=== PATIENT | male | born 1975 | race Caucasian/White ===

== ENCOUNTER 2024-10-15 18:44 | Inpatient (IN) | payer OTHER ==
--- NOTE | 2024-10-15 21:45 | US ---
EXAMINATION TYPE: US venous doppler duplex LE RT DATE OF EXAM: 10/15/2024 9:28 PM COMPARISON: None CLINICAL INDICATION: Male, 49 years old with history of pain, , rt leg pain and swelling TECHNIQUE: lower extremity deep venous system is examined utilizing real time linear array sonography with graded compression, color doppler and spectral doppler FINDINGS: side performed: right Right leg: There are echoes with thready flow and partial compression within the mid and distal femor al vein. There are echoes with no color doppler and no compression seen within the popliteal veins, g astroc veins, peroneal veins and PTV at the level of the calf. However, the PTVs appear to have color doppler flow and compress at the ankle IMPRESSION: Positive right lower extremity deep vein thrombosis. Findings communicated to Cathi Rangel, PAC on 10/15/2024 9:[address] Chuck Rouse. [facility], , 10/15/2024 9:43 PM
--- NOTE | 2024-10-15 21:53 | ED ---
General Adult HPI - General Chief complaint: Extremity Problem,Nontraumatic Stated complaint: R leg pain Time Seen by Provider: 10/15/24 19:00 Source: patient, EMS, RN notes reviewed Mode of arrival: EMS Limitations: no limitations - History of Present Illness Initial comments: 49-year-old male presenting to the ER as a transfer from [facility] with concerns for right lower extremity pain and swelling. He states that over the past 3 days he has noticed that there is swelling to the right lower part of his leg and this morning when he woke up he started to experience right-sided chest pain. He states that the pain is worse on the side of his chest with inspiration, pressure, and movement. 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 Currently states that he is having pain to his leg and to his chest. He denies recent travel or surgeries, hemoptysis, history of DVT or PE. Denies blood thinner use. - Related Data Allergies Allergy/AdvReac Type Severity Reaction Status Date / Time amoxicillin Allergy Rash/Hives Verified 10/15/24 19:16 Penicillins Allergy Rash/Hives Verified 10/15/24 19:16 seafood Allergy Anaphylaxis Uncoded 10/15/24 19:16 Review of Systems ROS Statement: Those systems with pertinent positive or pertinent negative responses have been documented in the HPI. ROS Other: All systems not noted in ROS Statement are negative. Past Medical History Past Medical History: Hypertension History of Any Multi-Drug Resistant Organisms: None Reported Past Surgical History: No Surgical Hx Reported Past Psychological History: No Psychological Hx Reported Smoking Status: Never smoker Past Alcohol Use History: Occasional Past Drug Use History: None Reported General Exam Limitations: no limitations Neck exam: Present: normal inspection. Absent: tenderness, meningismus, lymphadenopathy Respiratory exam: Present: normal lung sounds bilaterally, chest wall tenderness (anterior right to palpation). Absent: respiratory distress, wheezes, rales, rhonchi, stridor Cardiovascular Exam: Present: regular rate, normal rhythm, normal heart sounds. Absent: systolic murmur, diastolic murmur, rubs, gallop, clicks GI/Abdominal exam: Present: soft, normal bowel sounds. Absent: distended, tenderness, guarding, rebound, rigid Right Lower Leg exam: Present: tenderness, swelling, Homans' sign. Absent: deformity, crepitus, erythema, palpable cord Neurovascular tendon exam: Present: no vascular compromise. Absent: pulse deficit Back exam: Present: normal inspection Course Vital Signs 10/15/24 19:14 Temperature 97.8 F Pulse Rate 106 H Respiratory 18 Rate Blood Pressure 153/115 O2 Sat by Pulse 99 Oximetry Medical Decision Making - Medical Decision Making Was pt. sent in by a medical professional or institution (, SYBIL, DETECTIVE, urgent care, hospital, or retirement...) When possible be specific @ -Patient was a transfer from [facility] with concern for right lower extremity swelling and pain and chest pain to rule out DVT or potential PE. Did you speak to anyone other than the patient for history (EMS, parent, family, police, friend...)? What history was obtained from this source @ -No Did you review nursing and triage notes (agree or disagree)? Why? @ -I reviewed and agree with nursing and triage notes Were old charts reviewed (outside hosp., previous admission, EMS record, old EKG, old radiological studies, urgent care reports/EKG's, retirement records)? Report findings @ -No old charts were reviewed Differential Diagnosis (chest pain, altered mental status, abdominal pain women, abdominal pain men, vaginal bleeding, weakness, fever, dyspnea, syncope, headache, dizziness, GI bleed, back pain, seizure, CVA, palpatations, mental health, musculoskeletal)? @ -Differential Chest Pain: Stable Angina, Unstable Angina, STEMI, NSTEMI Aortic Dissection, Pneumothorax, Musculoskeletal, Esophageal Spasm GERD, Cholecystitis, Pancreatitis, Zoster, this is not meant to be an all-inclusive list. EKG interpreted by me (3pts min.). @ -none X-rays interpreted by me (1pt min.). @ -None done CT interpreted by me (1pt min.). @ -None done U/S interpreted by me (1pt. min.). @ -None done What testing was considered but not performed or refused? (CT, X-rays, U/S, labs)? Why? @ -None What meds were considered but not given or refused? Why? @ -None Did you discuss the management of the patient with other professionals (professionals i.e. , SYBIL, DETECTIVE, lab, RT, psych nurse, social services technician, psychotherapist counselor, teacher, combatant diver officer, residential case manager)? Give summary @ -I spoke with Dr. Kohler, was agreed to meet the patient for VQ scan to rule out potential DVT. Was smoking cessation discussed for >3mins.? @ -No Was critical care preformed (if so, how long)? @ -Performed for longer than 35 minutes this patient started on heparin drip for positive DVT of the right lower extremity. Were there social determinants of health that impacted care today? How? (Homelessness, low income, unemployed, alcoholism, drug addiction, transportation, low edu. Level, literacy, decrease access to med. care, long term, rehab)? @ -No Was there de-escalation of care discussed even if they declined (Discuss DNR or withdrawal of care, Hospice)? DNR status @ -No What co-morbidities impacted this encounter? (DM, HTN, Smoking, COPD, CAD, Cancer, CVA, ARF, Chemo, Hep., AIDS, mental health diagnosis, sleep apnea, morbid obesity)? @ -None Was patient admitted / discharged? Hospital course, mention meds given and route, prescriptions, significant lab abnormalities, going to OR and other pertinent info. @ -Admitted. 49-year male presenting as transfer for concerns of right lower extremity pain and chest pain. Patient's right lower extremity is noted to be edematous and there is a positive Homans' sign on examination. Pedal pulses intact. Ultrasound imaging reveals a positive DVT to the right lower extremity. With concern for patient's active chest pain and positive DVT and unable to determine if true PE as patient will need VQ scan he will be admitted to the hospital with impending VQ scan. Patient is started on IV heparin. Case discussed with my attending Dr. Mccray. Undiagnosed new problem with uncertain prognosis? @ -No Drug Therapy requiring intensive monitoring for toxicity (Heparin, Nitro, Insulin, Cardizem)? @ -Yes, IV heparin drip due to positive DVT. Were any procedures done? @ -No Diagnosis/symptom? @ -DVT of right lower extremity Acute, or Chronic, or Acute on Chronic? @ -Acute Uncomplicated (without systemic symptoms) or Complicated (systemic symptoms)? @ -Complicated Side effects of treatment? @ -No Exacerbation, Progression, or Severe Exacerbation? @ -No Poses a threat to life or bodily function? How? (Chest pain, [place], [place], pneumonia, PE, COPD, DKA, ARF, appy, cholecystitis, CVA, Diverticulitis, Homicidal, Suicidal, threat to staff... and all critical care pts) @ -No - Lab Data Result diagrams: 10/15/24 23:02 10/15/24 23:02 Disposition Clinical Impression: Deep vein thrombosis (DVT) of lower extremity Disposition: ADMITTED IP TO THIS [facility] Condition: Stable Decision to Admit Reason: Admit from [facility] Decision Date: 10/15/24
[2024-10-15] MEDS ORDERED: NALOXONE 0.4 MG/ML 1 ML VIAL IV PRN (22:54)
[2024-10-15 23:32] LABS: Basophils # (A) 0.03 10*3/uL (0.00-0.10); Basophils % (A) 0.5 %; Eosinophils # (A) 0.07 10*3/uL (0.04-0.35); Eosinophils % (A) 1.2 %; HCT 40.7 % (39.6-50.0); HGB 13.6 g/dL (13.0-17.0); Lymphocytes # (A) 1.23 10*3/uL (0.90-5.00); Lymphocytes % (A) 21.8 %; MCH 29.2 pg (27.0-32.0); MCHC 33.4 g/dL (32.0-37.0); MCV 87.5 fL (80.0-97.0); Monocytes # (A) 0.53 10*3/uL (0.20-1.00); Monocytes % (A) 9.4 %; Neutrophils # (A) 3.76 10*3/uL (1.80-7.70); Neutrophils % (A) 66.9 %; Platelet Count 212 10*3/uL (140-440); RBC 4.65 10*6/uL (4.40-5.60); RDW 18.2 % (11.5-14.5); WBC 5.63 10*3/uL (4.50-10.00)
[2024-10-15 23:42] LABS: INR 1.0 (<1.2); Partial Thromboplastin Time 24.8 sec (22.0-30.0); Prothrombin Time 11.3 sec (10.0-12.5)
[2024-10-15] MEDS: MORPHINE SULFATE 4 MG/ML SYRINGE IV PRN (23:45)
[2024-10-15 23:46] LABS: ALT 12 U/L (4-49); AST 20 U/L (17-59); African American GFR (CKD) 49 (>60 ml/min/1.73 sqM); Albumin 4.1 g/dL (3.5-5.0); Alkaline Phosphatase 76 U/L (38-126); Anion Gap 13 mmol/L; Blood Urea Nitrogen 18 mg/dL (9-20); Calcium 9.7 mg/dL (8.4-10.2); Carbon Dioxide 23 mmol/L (22-30); Chloride 101 mmol/L (98-107); Glucose 102 mg/dL (74-99); Non-African American GFR(CKD) 42 (>60 ml/min/1.73 sqM); Potassium 4.3 mmol/L (3.5-5.1); Sodium 137 mmol/L (137-145); Total Protein 7.2 g/dL (6.3-8.2)
[2024-10-15] MEDS: HEPARIN SODIUM 1,000 UN/ML (10ML VL) IV ONE (23:48)
[2024-10-15] MEDS: HEPARIN SOD,PORK IN 0.45% NACL 25,000 UNIT in 0.45% NACL 1 250ML.BAG IV SCH (23:50)
[2024-10-16] MEDS: hydrALAZINE HCL 20 MG/ML 1 ML VIAL IVP PRN (01:16)
[2024-10-16] MEDS: LABETALOL 5 MG/ML VIAL MDV IVP STA (02:02)
--- NOTE | 2024-10-16 03:16 | CT ---
EXAM: CT Chest Without Intravenous Contrast CLINICAL HISTORY: ITS.REASON CT Reason: rt antrior rib injury TECHNIQUE: Axial computed tomography images of the chest without intravenous contrast. CTDI is 7 mGy and DLP is 314.3 mGy-cm. This CT exam was performed using one or more of the following dose reduction techniques: automated exposure control, adjustment of the mA and/or kV according to patient size, and/or use of iterative reconstruction technique. COMPARISON: No relevant prior studies available. FINDINGS: Lungs: Mild airspace consolidation in the right middle lobe, concerning for mild pneumonia. Pleural space: Unremarkable. No pneumothorax. No significant effusion. Heart: Unremarkable. No cardiomegaly. No significant pericardial effusion. No significant coronary artery calcifications. Bones/joints: Unremarkable. No dislocation. No right-sided rib fracture. Soft tissues: Unremarkable. Vasculature: Unremarkable. No thoracic aortic aneurysm. Lymph nodes: Unremarkable. No enlarged lymph nodes. Tubes, lines and devices: Right IJ catheter terminates in the right atrium. IMPRESSION: 1. No right-sided rib fracture. 2. Mild airspace consolidation in the right middle lobe, concerning for mild pneumonia.
--- NOTE | 2024-10-16 04:09 | HP ---
HISTORY AND PHYSICAL HISTORY OF PRESENT ILLNESS: The patient is a 49-year-old white male who came to the ER, who looks much older than stated age with right leg swelling in his lower calf and the upper thigh. He was found to have venous Doppler that shows a positive DVT in the right leg. New onset. Never had before. No family history of DVTs. 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 We have ordered a V/Q scan, and we are going to do a CAT scan without contrast. Denies any medications or drug uses. ALLERGIES: Amoxicillin and seafood. REVIEW OF SYSTEMS: 14-point review of systems otherwise negative except for hypertension. SOCIAL HISTORY: He does not smoke. Occasional alcohol. No drugs. PHYSICAL EXAMINATION: VITAL SIGNS: Temperature 97.8, pulse 106, respiratory rate 16 to 18, blood pressure 153/115. CARDIOVASCULAR: S1, S2. MUSCULOSKELETAL: He has tenderness to palpation over the anterior chest around T5 area, anterior rib on the right side, worse with light palpation, possibly has a rib fracture, cartilage injury. He felt some pop in his chest. GI: Soft. RESPIRATORY: Decreased breath sounds. EXTREMITIES: Right leg is more swollen than the left leg with positive Homans in the right calf. PSYCH: Fair mood and affect. NEUROLOGIC: Alert and oriented x3. LABORATORY DATA: Hemoglobin is 13.6, white count is 5.63. BUN is 13, creatinine 1.86. ASSESSMENT: 1. Deep venous thrombosis of the lower extremity. 2. Rule out pulmonary embolism. 3. Rule out thoracic rib injury. PLAN: CAT scan of the chest. V/Q scan is ordered. Consult with Vascular and Hematology. Prognosis guarded. MMODL / IJN: [id number] /
[2024-10-16] MEDS: HEPARIN SODIUM 1,000 UN/ML (10ML VL) IV PRN (06:33)
--- NOTE | 2024-10-16 08:53 | NM ---
EXAMINATION TYPE: NM pul vent and perfuse DATE OF EXAM: 10/16/2024 CLINICAL INDICATION: Male, 49 years old with history of chest pain, + RLE DVT; COMPARISON: Correlation CT same day TECHNIQUE: Utilizing inhalation of 64 mCi Tc 99m DTPA aerosol and intravenous injection of 5.2 mCi o f Tc 99m MAA, ventilation and perfusion images are acquired post injection in multiple projections. FINDINGS: There is whole lung matched ventilation and perfusion defect on the right. Normal ventilation and per fusion throughout the left lung. IMPRESSION: Significantly abnormal exam with entire lung matched ventilation and perfusion defect on the right. W hile this may point towards other causes for the abnormality such as an obstructing hilar mass or priscila ous stenosis/occlusion, there is a small chance for a very large unilateral PE. Correlate with clinic al suspicion for PE. Assess risk benefit analysis for PE CT. [facility], , 10/16/2024 8:51 AM
[2024-10-16] MEDS: HEPARIN SODIUM 1,000 UN/ML (10ML VL) IV ONE (13:18)
--- NOTE | 2024-10-16 13:33 | US ---
EXAMINATION TYPE: US venous doppler duplex LE LT DATE OF EXAM: 10/16/2024 1:14 PM Exam done portable COMPARISON: NONE CLINICAL INDICATION: Male, 49 years old with history of baseline study, RLE DVT; TECHNIQUE: The lower extremity deep venous system is examined utilizing real time linear array sonog cintia with graded compression, doppler sonography and color-flow sonography. Grayscale, color doppler , spectral doppler imaging performed of the deep veins of the lower extremities FINDINGS: SIDE PERFORMED: Left VESSELS IMAGED: Common Femoral Vein Deep Femoral Vein Greater Saphenous Vein * Femoral Vein Popliteal Vein Small Saphenous Vein * Proximal Calf Veins (* superficial vessels) Left Leg: Appears negative for DVT; There is normal flow, compressibility, vascular waveforms. IMPRESSION: No evidence for DVT within the left lower extremity imaged from the groin to the upper calf. [facility], , 10/16/2024 1:31 PM
--- NOTE | 2024-10-16 16:09 | P.GSCN ---
History of Present Illness History of present illness: 49-year-old gentleman patient transferred from [facility] yesterday with history of swelling and pain right lower extremity complaint of right-sided chest pain there is no history of trauma history of deep vein thrombosis had a venous ultrasound of the right leg of the right lower extremity involving the femoral and popliteal shows no right-sided fracture mild airspace consolidation on the right middle lobe concern for mild pneumonia. On examination neck is supple no bruit. Chest is clear good air entry both lungs few crackles posterior second sound present abdomen is soft nontender vascular fibula 2+ bilateral dorsalis pedis palpable bilateral changes or ulceration noted on the right lower extremity mild swelling noted Venous ultrasound shows DVT with right lower extremity neg for PE patient on heparin which will be continued the patient will follow-up with you Past Medical History Past Medical History: Hypertension History of Any Multi-Drug Resistant Organisms: None Reported Past Surgical History: No Surgical Hx Reported Past Psychological History: No Psychological Hx Reported Smoking Status: Never smoker Past Alcohol Use History: Occasional Past Drug Use History: None Reported Medications and Allergies Home Medications Medication Instructions Recorded Confirmed Type No Known Home Medications 10/16/24 10/16/24 History Allergies Allergy/AdvReac Type Severity Reaction Status Date / Time amoxicillin Allergy Rash/Hives Verified 10/16/24 09:30 Penicillins Allergy Rash/Hives Verified 10/16/24 09:30 seafood Allergy Anaphylaxis Uncoded 10/16/24 09:30 Surgical - Exam Vital Signs Temp Pulse Resp BP Pulse Ox 97.8 F 106 H 18 153/115 99 10/15/24 19:14 10/15/24 19:14 10/15/24 19:14 10/15/24 19:14 10/15/24 19:14 Results - Labs 10/15/24 23:02 10/15/24 23:02 Abnormal Lab Results - Last 24 Hours (Table) 10/15/24 Range/Units 23:02 Creatinine 1.86 H (0.66-1.25) mg/dL Glucose 102 H (74-99) mg/dL Diabetes panel 10/15/24 Range/Units 23:02 Sodium 137 (137-145) mmol/L Potassium 4.3 (3.5-5.1) mmol/L Chloride 101 (98-107) mmol/L Carbon Dioxide 23 (22-30) mmol/L BUN 18 (9-20) mg/dL Creatinine 1.86 H (0.66-1.25) mg/dL Glucose 102 H (74-99) mg/dL Calcium 9.7 (8.4-10.2) mg/dL AST 20 (17-59) U/L ALT 12 (4-49) U/L Alkaline Phosphatase 76 (38-126) U/L Total Protein 7.2 (6.3-8.2) g/dL Albumin 4.1 (3.5-5.0) g/dL Calcium panel 10/15/24 Range/Units 23:02 Calcium 9.7 (8.4-10.2) mg/dL Albumin 4.1 (3.5-5.0) g/dL Pituitary panel 10/15/24 Range/Units 23:02 Sodium 137 (137-145) mmol/L Potassium 4.3 (3.5-5.1) mmol/L Chloride 101 (98-107) mmol/L Carbon Dioxide 23 (22-30) mmol/L BUN 18 (9-20) mg/dL Creatinine 1.86 H (0.66-1.25) mg/dL Glucose 102 H (74-99) mg/dL Calcium 9.7 (8.4-10.2) mg/dL Adrenal panel 10/15/24 Range/Units 23:02 Sodium 137 (137-145) mmol/L Potassium 4.3 (3.5-5.1) mmol/L Chloride 101 (98-107) mmol/L Carbon Dioxide 23 (22-30) mmol/L BUN 18 (9-20) mg/dL Creatinine 1.86 H (0.66-1.25) mg/dL Glucose 102 H (74-99) mg/dL Calcium 9.7 (8.4-10.2) mg/dL Total Bilirubin 0.7 (0.2-1.3) mg/dL AST 20 (17-59) U/L ALT 12 (4-49) U/L Alkaline Phosphatase 76 (38-126) U/L Total Protein 7.2 (6.3-8.2) g/dL Albumin 4.1 (3.5-5.0) g/dL
[2024-10-16] MEDS: LEVOFLOXACIN 500MG-D5W PMX 500 MG in DEXTROSE/WATER 1 100ML.BAG IVPB SCH (17:56)
[2024-10-16] MEDS: APIXABAN 5 MG TAB PO SCH (20:14)
[2024-10-16 21:01] LABS: Cardiolipin Ab IgG Interp Negative (Negative); Cardiolipin Ab IgM Interp Negative (Negative)
--- NOTE | 2024-10-17 07:03 | P.CONS ---
History of Present Illness - Reason for Consult Consult date: 10/16/24 dvt Requesting physician: Nate Kohler - Chief Complaint RLE swelling - History of Present Illness Patient is a 49-year-old male with history of CKD. Patient presented to the emergency room with complaints of right lower extremity swelling as well as chest pain. Right lower extremity Doppler positive for DVT. CT chest without contrast showing no right sided rib fracture. R. Mild airspace consolidation the right middle lobe concerning for mild pneumonia. Nuclear medicine VQ scan showing significantly abnormal exam with entire lung matched ventilation/perfus ion defect on the right. While this might point towards other causes for the abnormality such as an obstructing hilar mass or venous stenosis/occlusion there is a small chance for a very large unilateral PE. Patient has been started on heparin drip. At today's visit patient denies any provoking factors. Patient did have dialysis cath placed in right chest wall in July at which time he started dialysis for approximately 3 weeks. Due to reported side effects patient states he stopped dialysis and has not had any since treatment since . Today creatinine 1.86, GFR 42. WBC 5.6, hemoglobin 13.6, platelets 212,000. Coags WNL. Review of Systems 10 point ROS is negative except as stated in the HPI Past Medical History Past Medical History: Hypertension History of Any Multi-Drug Resistant Organisms: None Reported Past Surgical History: No Surgical Hx Reported Past Psychological History: No Psychological Hx Reported Smoking Status: Never smoker Past Alcohol Use History: Occasional Past Drug Use History: None Reported Medications and Allergies Home Medications Medication Instructions Recorded Confirmed Type No Known Home Medications 10/16/24 10/16/24 History Allergies Allergy/AdvReac Type Severity Reaction Status Date / Time amoxicillin Allergy Rash/Hives Verified 10/16/24 09:30 Penicillins Allergy Rash/Hives Verified 10/16/24 09:30 seafood Allergy Anaphylaxis Uncoded 10/16/24 09:30 Physical Exam Vitals: Vital Signs Temp Pulse Pulse Resp BP BP Pulse Ox 10/16/24 07:11 98.1 F 106 H 18 149/102 98 10/16/24 03:16 109 H 17 146/92 98 10/16/24 02:01 129/95 10/16/24 01:00 94 18 153/111 100 10/16/24 00:08 97.8 F 75 16 160/111 98 10/15/24 19:14 97.8 F 106 H 18 153/115 99 Intake and Output 10/15/24 10/16/24 10/16/24 22:59 06:59 14:59 Intake Total 62.766 Balance 62.766 Intake: Intake, IV Titration 62.766 Amount Heparin Sod,Pork in 0.45% 62.766 NaCl 25,000 unit In 0.45 % NaCl 1 250ml.bag @ 12 UNITS/KG/HR 9.253 mls/hr IV .Q24H GORD[facility] Rx#: [id number] Other: # Voids 1 Weight 77.111 kg 77.111 kg - Constitutional General appearance: average body habitus, no acute distress - EENT Eyes: anicteric sclerae, EOMI ENT: hearing grossly normal - Respiratory breathing is even and unlabored - Cardiovascular skin warm and dry. RLE edema and right calf tenderness - Gastrointestinal General gastrointestinal: soft, no tenderness - Integumentary Integumentary: no cyanotic - Neurologic Neurologic: CNII-XII intact - Musculoskeletal Musculoskeletal: strength equal bilaterally - Psychiatric Psychiatric: A&O x's 3 Results CBC & Chem 7: 10/15/24 23:02 10/15/24 23:02 Labs: Abnormal Lab Results - Last 24 Hours (Table) 10/15/24 Range/Units 23:02 Creatinine 1.86 H (0.66-1.25) mg/dL Glucose 102 H (74-99) mg/dL CT scan - chest: report reviewed Venous US: report reviewed Assessment and Plan (1) Deep vein thrombosis (DVT) of lower extremity Current Visit: Yes Status: Acute Code(s): I82.409 - ACUTE EMBOLISM AND THOMBOS UNSP DEEP VN UNSP LOWER EXTREMITY SNOMED Code(s): 499143532 Plan: DVT: Presented to the emergency room with complaints of right lower extremity swelling as well as chest pain. -Right lower extremity Doppler positive for DVT. -VQ scan showing significantly abnormal exam with entire lung matched ventilation/perfusion defect on the right. While this might point towards other causes for the abnormality such as an obstructing hilar mass or venous stenosis/occlusion there is a small chance for a large unilateral PE. CT chest without contrast showing mild airspace consolidation in the right middle lobe concerning for mild pneumonia, no reported mass or enlarged lymph nodes. -Heparin drip started -Discussed results with pt, and recommended CTA chest to further evaluate VQ scan findings, with pre-medications for contrast allergy. Pt declined testing -Will obtain LLE doppler for baseline -Obtain APLS labs -Appears to be unprovoked VTE. Would recommend minimum 6months-1 year anticoagulation, and possible lifelong anticoagulation. Pt can be transitioned to Eliquis as long as there are interventions/procedures planned -Will schedule clinic f/u for further management and hypercoaguable workup Pt was agreeable to above plan of care
[2024-10-17 12:17] LABS: APTT 59 Sec(s) (<43); APTT 1:1 Mix 50 Sec(s) (<43); Dilute Russell Viper Venom 41 Sec(s) (<44)
[2024-10-17] MEDS: NITROGLYCERIN SL TABS 0.4 MG TAB SUBLINGUAL PRN (14:18)
[2024-10-17 14:44] LABS: Basophils # (A) 0.03 10*3/uL (0.00-0.10); Basophils % (A) 0.4 %; Eosinophils # (A) 0.18 10*3/uL (0.04-0.35); Eosinophils % (A) 2.5 %; HCT 38.9 % (39.6-50.0); HGB 12.5 g/dL (13.0-17.0); Lymphocytes # (A) 1.10 10*3/uL (0.90-5.00); Lymphocytes % (A) 15.1 %; MCH 28.8 pg (27.0-32.0); MCHC 32.1 g/dL (32.0-37.0); MCV 89.6 fL (80.0-97.0); Monocytes # (A) 0.63 10*3/uL (0.20-1.00); Monocytes % (A) 8.7 %; Neutrophils # (A) 5.31 10*3/uL (1.80-7.70); Neutrophils % (A) 73.0 %; Platelet Count 299 10*3/uL (140-440); RBC 4.34 10*6/uL (4.40-5.60); RDW 18.0 % (11.5-14.5); WBC 7.27 10*3/uL (4.50-10.00)
--- NOTE | 2024-10-17 14:47 | XR ---
EXAMINATION TYPE: XR chest 1V portable DATE OF EXAM: 10/17/2024 2:36 PM COMPARISON: None CLINICAL INDICATION: Male, 49 years old with history of SOB, , FINDINGS: Right-sided double-lumen hemodialysis catheter with tips in the upper right atrium. Heart mildly enla rged. Interstitial/vascular prominence. Focal opacity at the right base. No sizable pleural effusion. IMPRESSION: 1. Correlate for fluid overload with pulmonary vascular congestion. 2. Focal airspace opacity, possible pneumonia at the anterior right base. [facility], Workstation: [facility], 10/17/2024 2:45 PM
--- NOTE | 2024-10-17 14:51 | PN ---
PROGRESS NOTE SUBJECTIVE: The patient was admitted with severe DVT in his right leg. Discussed the case with Dr. Ag. The patient wants possible port taken out of the right shoulder before he goes home. PHYSICAL EXAMINATION: VITAL SIGNS: Temperature 98.6, pulse is 80s to 100s, blood pressure is 103/74 to 142/91. He is saturating 96% on room air. DIAGNOSTIC STUDIES: CT of the chest was negative. ASSESSMENT: Positive for pneumonia right middle lobe, but negative for pulmonary embolism. He is on antibiotics. He is on Eliquis now and Dr. Gomez wants to keep him for another 2 days, which will tell the patient, put him on breathing treatments for chronic obstructive pulmonary disease. Prognosis guarded. Please see further orders. MMODL / IJN: [id number] /
[2024-10-17 14:58] LABS: ALT 13 U/L (4-49); AST 26 U/L (17-59); African American GFR (CKD) 50 (>60 ml/min/1.73 sqM); Albumin 3.6 g/dL (3.5-5.0); Albumin/Globulin Ratio 1.2; Alkaline Phosphatase 59 U/L (38-126); Anion Gap 12 mmol/L; Blood Urea Nitrogen 15 mg/dL (9-20); Calcium 9.9 mg/dL (8.4-10.2); Carbon Dioxide 21 mmol/L (22-30); Chloride 98 mmol/L (98-107); Globulin 3.0 g/dL; Glucose 93 mg/dL (74-99); Non-African American GFR(CKD) 44 (>60 ml/min/1.73 sqM); Potassium 4.5 mmol/L (3.5-5.1); Sodium 131 mmol/L (137-145); Total Protein 6.6 g/dL (6.3-8.2)
[2024-10-17 15:39] LABS: INR 1.0 (<1.2); Partial Thromboplastin Time 27.2 sec (22.0-30.0); Prothrombin Time 11.0 sec (10.0-12.5)
[2024-10-17] MEDS: HEPARIN SOD,PORK IN 0.45% NACL 25,000 UNIT in 0.45% NACL 1 250ML.BAG IV SCH (15:42)
[2024-10-17] MEDS: HYDROmorphone 1 MG/ML 1 ML SYRINGE IM PRN (15:44)
--- NOTE | 2024-10-17 15:49 | P.CNPUL ---
History of Present Illness Consult date: 10/17/24 Reason for consult: pulmonary embolism History of present illness: I was asked to evaluate this patient for ongoing chest pain. The patient was hospitalized on 10/15/2024. The patient was transferred to us from [facility]. The patient presented there with acute pain and swelling of the right lower extremity that been going on for the past 3 days. The patient subsequent developed an acute pleuritic right-sided chest pain radiating to his back. No hemoptysis. The pain was worse with breathing and the patient was unable to take any form of deep breath. Based on that, the patient got transferred to our hospital. Doppler of the lower extremity showed no abnormalities on the left, there was a positive right lower extremity DVT and this was involving the popliteal vein, peroneal vein and PTV. Patient underwent a noncontrast CAT scan of the chest. He declined contrast due to allergy and the patient also has a component of chronic kidney disease. The CAT scan showed some mild airspace disease in the anterior right middle lobe/right middle lobe without any other significant abnormalities. Furthermore, the patient was given a VQ scan that showed a large matched defect involving the right lung and there was a matched ventilation/perfusion defect. The patient is currently on 2 L of oxygen by nasal cannula with a pulse ox of 99%. Slight tachycardic with a heart rate of 105. The patient has a normal coagulation profile. Creatinine is at 1.8 with a BUN of 15. Electrolytes are all within normal limits. Hemoglobin is at 12.5 with a white cell count of 7.2. No previous history of DVT or pulmonary embolism. No personal or family history. 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 Denies smoking. Denies substance abuse. Denies recent surgeries. Denies malignancies. The patient had a recent hospitalization at [facility] for altered mentation and the patient was found to be in renal failure. Details are not available and the patient is a poor historian and is not aware of the details of his previous hospitalization. During the last hospitalization, the patient was treated with dialysis and the patient was ultimately given a permacath upon discharge. However, he has not been undergoing any dialysis and the patient has not received any further medical treatment. The exact nature of his kidney failure is not known. Does not take any medications for now. He is known to have hypertension. No history of trauma. The troponin was negative. proBNP level is pending. Echocardiogram ordered. Review of Systems Constitutional: Denies chills, Denies fever Eyes: denies as per HPI, denies blurred vision, denies bulging eye, denies decre ased vision, denies diplopia, denies discharge, denies dry eye, denies irritation, denies itching, denies pain, denies photophobia, denies loss of peripheral vision, denies loss of vision, denies tunnel vision/blind spots Ears: deny: decreased hearing, ear discharge, earache, tinnitus Ears, nose, mouth and throat: Reports as per HPI Breasts: absent: as per HPI, gynecomastia Cardiovascular: Reports chest pain, Reports dyspnea on exertion Respiratory: Reports dyspnea Gastrointestinal: Reports as per HPI Genitourinary: Reports as per HPI Musculoskeletal: Reports as per HPI (Pain involving the right lower extremity involving the calf and some swelling) Musculoskeletal: absent: ankle pain, ankle stiffness, ankle swelling, as per HPI, elbow pain, elbow stiffness, elbow swelling, foot pain, foot stiffness, foot swelling, hand pain, hand stiffness, hand swelling, hip pain, hip stiffness, hip swelling, knee pain, knee stiffness, knee swelling, shoulder pain, shoulder stiffness, shoulder swelling, wrist pain, wrist stiffness, wrist swelling Integumentary: Reports as per HPI Neurological: Reports as per HPI Psychiatric: Reports as per HPI Endocrine: Reports as per HPI Hematologic/Lymphatic: Reports as per HPI Allergic/Immunologic: Reports as per HPI Past Medical History Past Medical History: Hypertension Additional Past Medical History / Comment(s): History of an acute kidney injury and the patient does have some residual renal insufficiency probably due to underlying chronic kidney disease History of Any Multi-Drug Resistant Organisms: None Reported Past Surgical History: No Surgical Hx Reported Past Psychological History: No Psychological Hx Reported Smoking Status: Never smoker Past Alcohol Use History: Occasional Past Drug Use History: None Reported Medications and Allergies Home Medications Medication Instructions Recorded Confirmed Type No Known Home Medications 10/16/24 10/16/24 History Allergies Allergy/AdvReac Type Severity Reaction Status Date / Time amoxicillin Allergy Rash/Hives Verified 10/16/24 09:30 Penicillins Allergy Rash/Hives Verified 10/16/24 09:30 seafood Allergy Anaphylaxis Uncoded 10/16/24 09:30 Physical Exam Vitals: Vital Signs Temp Pulse Resp BP Pulse Ox 10/17/24 15:00 100 20 121/81 100 10/17/24 14:44 105 H 21 141/94 97 10/17/24 14:20 106 H 20 172/113 99 10/17/24 14:00 105 H 20 159/106 100 10/17/24 06:59 98.8 F 85 18 142/91 96 10/17/24 01:01 98.6 F 83 17 130/96 97 10/16/24 19:05 98.6 F 96 17 103/74 97 Intake and Output 10/17/24 10/17/24 10/17/24 06:59 14:59 22:59 Other: Voiding Method Toilet # Voids 2 The patient appeared well nourished and normally developed. Vital signs as documented. BMI is currently at 23.7 and the patient is currently on 2 L of oxygen by nasal cannula. The patient has poor dentition. Head exam is unremarkable. No scleral icterus or corneal arcus noted. Neck is without jugular venous distension, thyromegaly, or carotid bruits. Carotid upstrokes are brisk bilaterally. Permacath in his right IJ. Lungs are clear to auscultation and percussion. Diminished air entry b ilaterally as the patient is having pleuritic chest pain unable to take a deep breath. Cardiac exam reveals the PMI to be normally sized and situated. Rhythm is regular. First and second heart sounds normal. No murmurs, rubs or gallops. Abdominal exam reveals normal bowel sounds, no masses, no organomegaly and no aortic enlargement. Extremities are nonedematous and both femoral and pedal pulses are normal. Right lower extremity slightly swollen compared to the left and tender to touch. Adequate pulses. Examination of the skin revealed no evidence of significant rashes, suspicious appearing nevi or other concerning lesions. Neurologically, the patient is awake and alert and the patient does not have any focal neurological deficit. Cranial nerves are essentially intact. Results - Laboratory Findings CBC and BMP: 10/17/24 14:28 10/17/24 14:28 PT/INR, D-dimer PT 11.0 sec (10.0-12.5) 10/17/24 14: INR 1.0 (<1.2) 10/17/24 14:28 Abnormal lab findings: Abnormal Labs 10/15/24 10/16/2410/17/25 23:02 12:47 14:28 RBC 4.34 L Hgb 12.5 L Hct 38.9 L RDW 18.0 H Lupus Anticoag aPTT 59 H Lupus Anticoag PTT Mix 50 H Lupus Hexagonal Phase Positive A Sodium Carbon Dioxide Creatinine 1.86 H Glucose 102 H 10/17/24 14:28 RBC Hgb Hct RDW Lupus Anticoag aPTT Lupus Anticoag PTT Mix Lupus Hexagonal Phase Sodium 131 L Carbon Dioxide 21 L Creatinine 1.81 H Glucose - Diagnostic Findings Chest x-ray: image reviewed CT scan - chest: image reviewed Assessment and Plan Plan: Acute pulmonary embolism with severe pleuritic chest pain. The patient was confirmed with to have a right lower extremity popliteal peroneal and PTV thrombosis. VQ scan was abnormal with a large ventilation/perfusion defect. CT scan of the chest done without contrast and it shows some limited infiltration of the right middle lobe anteriorly, subpleural location with possible development of a pulmonary infarct. Troponins are negative. Echocardiogram is pending. Acute hypoxic respiratory failure currently on 2 L of oxygen by nasal cannula Sinus tachycardia Acute pleuritic chest wall pain secondary to above Right lower extremity pain secondary to above Recent hospitalization for an acute kidney injury requiring dialysis. The patient continues to have a permacath in his right IJ. No recent dialysis been provided and the patient's creatinine is currently at 1.8. Her underlying chronic kidney disease Hypertension Plan Titrate oxygen flow to maintain saturation above 90% Do not commit to Eliquis yet. Keep the patient on IV heparin for now. Obtain a stat echocardiogram to evaluate RV strain and pulmonary hypertension Dilaudid for pain control 1 mg every 3 hours Provide incentive spirometer Transfer the patient to [facility]. for telemetry monitoring Monitor renal function and obtain an ultrasound of the kidneys Obtain records from [facility] regarding details of his previous hospitalization Oncology evaluation for any potential hypercoagulability.
[2024-10-17] MEDS: HEPARIN SODIUM 1,000 UN/ML (10ML VL) IV ONE (15:51)
--- NOTE | 2024-10-17 17:30 | P.PCN ---
Operative Findings: Preop diagnosis is DVT of the right leg. Patient had dialysis catheter placed right atrial pressure in the past patient is not on dialysis Right neck and chest was prepped 1% lidocaine for infiltrate incisions were made exit site of the catheter went circumferentially around the cuff catheter was removed and incisions was closed with 3-0 nylon received right patient out of the procedure well
--- NOTE | 2024-10-17 17:37 | P.PN ---
Progress Note - Text 49-year-old gentleman patient came with swelling and pain in the right lower extremity ultrasound showed DVT involving the right lower extremity patient is on heparin On examination femoral pulses are palpable. Posterior tibial dorsal pedis present patient swelling is less than yesterday and has a REMI hose in. Pillow elevation I was consulted for removal of the right IJ catheter patient is on heparin patient be continued and with right leg elevation we will arrange for right IJ catheter removal
[2024-10-17] MEDS: HYDROmorphone 1 MG/ML 1 ML SYRINGE IVP PRN (18:51)
[2024-10-17] MEDS: HEPARIN SODIUM 1,000 UN/ML (10ML VL) IV PRN (22:19)
[2024-10-18 04:33] LABS: Basophils # (A) 0.03 10*3/uL (0.00-0.10); Basophils % (A) 0.5 %; Eosinophils # (A) 0.16 10*3/uL (0.04-0.35); Eosinophils % (A) 2.7 %; HCT 34.2 % (39.6-50.0); HGB 11.2 g/dL (13.0-17.0); Lymphocytes # (A) 1.14 10*3/uL (0.90-5.00); Lymphocytes % (A) 19.4 %; MCH 29.1 pg (27.0-32.0); MCHC 32.7 g/dL (32.0-37.0); MCV 88.8 fL (80.0-97.0); Monocytes # (A) 0.65 10*3/uL (0.20-1.00); Monocytes % (A) 11.0 %; Neutrophils # (A) 3.89 10*3/uL (1.80-7.70); Neutrophils % (A) 66.1 %; Platelet Count 259 10*3/uL (140-440); RBC 3.85 10*6/uL (4.40-5.60); RDW 17.8 % (11.5-14.5); WBC 5.89 10*3/uL (4.50-10.00)
--- NOTE | 2024-10-18 09:44 | CA ---
Transthoracic Echo Report Name: Ike Mendoza Age: 49 Gender: M : 1975 Exam Date: 10/17/2024 15:33 Exam Location: [facility] Ht (in): 71 Wt (lb): 170 Ordering Physician: Barrie Arauz MD Attending/Referring Phys: Oncology Navigator Cintia Steinberg RDCS Procedure CPT: Indications: Chest Pain Cardiac Hx: Technical Quality: Fair Contrast 1: Total Dose (mL): Contrast 2: Total Dose (mL): MEASUREMENTS (Male / Female) Normal Values 2D ECHO LV Diastolic Diameter PLAX 4.8 cm 4.2 - 5.9 / 3.9 - 5.3 cm LV Systolic Diameter PLAX 2.8 cm IVS Diastolic Thickness 1.2 cm 0.6 - 1.0 / 0.6 - 0.9 cm LVPW Diastolic Thickness 1.2 cm 0.6 - 1.0 / 0.6 - 0.9 cm LV Relative Wall Thickness 0.5 RV Internal Dim ED PLAX 2.8 cm LVOT Diameter 1.9 cm LA Systolic Diameter LX 2.9 cm 3.0 - 4.0 / 2.7 - 3.8 cm LV Diastolic Volume MOD BP 81.4 cm??? 67 - 155 / 56 - 104 cm??? LV Systolic Volume MOD BP 27.0 cm??? 22 - 58 / 19 - 49 cm??? LV Ejection Fraction MOD BP 66.8 % >= 55 % LV Cardiac Index MOD BP 2374.2 cm???/min???m??? LV Diastolic Volume MOD 4C 87.3 cm??? LV Systolic Volume MOD 4C 29.6 cm??? LV Ejection Fraction MOD 4C 66.0 % LV Cardiac Index MOD 4C 2517.5 cm???/min???m??? LV Diastolic Length 4C 8.6 cm LV Systolic Length 4C 7.1 cm LV Diastolic Volume MOD 2C 65.6 cm??? LV Systolic Volume MOD 2C 22.7 cm??? LV Ejection Fraction MOD 2C 65.5 % LV Cardiac Index MOD 2C 1877.4 cm???/min???m??? LV Diastolic Length 2C 7.4 cm LV Systolic Length 2C 6.5 cm Ascending Aorta Diameter 3.5 cm M-MODE Aortic Root Diameter MM 4.3 cm LA Systolic Diameter MM 2.7 cm LA Ao Ratio MM 0.6 DOPPLER AV Peak Velocity 141.3 cm/s AV Peak Gradient 8.0 mmHg LVOT Peak Velocity 133.1 cm/s LVOT Peak Gradient 7.1 mmHg AV Area Cont Eq pk 2.7 cm??? Mitral E Point Velocity 74.0 cm/s Mitral A Point Velocity 75.6 cm/s Mitral E to A Ratio 1.0 MV Deceleration Time 285.1 ms MV E' Velocity 8.3 cm/s Mitral E to MV E' Ratio 8.9 FINDINGS Left Ventricle Left ventricular ejection fraction is estimated at 60-65%. Normal left ventricular systolic function with no obvious regional wall motion abnormalities. Left ventricular cavity size normal. Mildly increased septal wall thickness. Right Ventricle Normal right ventricular size and function. Right Atrium Normal right atrial size. No right atrial thrombus or mass seen. Left Atrium Normal left atrial size. No left atrial thrombus or mass present. Mitral Valve Mitral valve thickened. No mitral stenosis. trivial mitral valve regurge Aortic Valve Aortic valve not well visualized. No aortic stenosis. No aortic regurgitation. Tricuspid Valve Structurally normal tricuspid valve. No tricuspid regurgitation. Pulmonic Valve Pulmonic valve not well visualized. No pulmonic regurgitation. Pericardium No pericardial effusion. No pleural effusion. Aorta Mild to moderate aortic dilatation at the level of the sinuses of valsalva (root). Normal proximal ascending aorta. CONCLUSIONS Normal biventricular systolic function No significant valvular abnormalities No pericardial effusion Previewed by: Dr. Kevin Arevalo MD (Electronically Signed) Final Date: 18 October 2024 09:43
[2024-10-18 10:40] LABS: ALT 12 U/L (4-49); AST 18 U/L (17-59); African American GFR (CKD) 52 (>60 ml/min/1.73 sqM); Albumin 3.2 g/dL (3.5-5.0); Alkaline Phosphatase 52 U/L (38-126); Anion Gap 9 mmol/L; Blood Urea Nitrogen 15 mg/dL (9-20); Calcium 9.1 mg/dL (8.4-10.2); Carbon Dioxide 23 mmol/L (22-30); Chloride 97 mmol/L (98-107); Glucose 92 mg/dL (74-99); Non-African American GFR(CKD) 45 (>60 ml/min/1.73 sqM); Potassium 4.1 mmol/L (3.5-5.1); Sodium 129 mmol/L (137-145); Total Protein 6.1 g/dL (6.3-8.2)
--- NOTE | 2024-10-18 12:28 | P.PN ---
Subjective Progress Note Date: 10/18/24 I was asked to evaluate this patient for ongoing chest pain. The patient was hospitalized on 10/15/2024. The patient was transferred to us from [facility]. The patient presented there with acute pain and swelling of the right lower extremity that been going on for the past 3 days. The patient subsequent developed an acute pleuritic right-sided chest pain radiating to his back. No hemoptysis. The pain was worse with breathing and the patient was unable to take any form of deep breath. Based on that, the patient got transferred to our hospital. Doppler of the lower extremity showed no abnormalities on the left, there was a positive right lower extremity DVT and this was involving the popliteal vein, peroneal vein and PTV. Patient underwent a noncontrast CAT scan of the chest. He declined contrast due to allergy and the patient also has a component of chronic kidney disease. The CAT scan showed some mild airspace disease in the anterior right middle lobe/right middle lobe without any other significant abnormalities. Furthermore, the patient was given a VQ scan that showed a large matched defect involving the right lung and there was a matched ventilation/perfusion defect. The patient is currently on 2 L of oxygen by nasal cannula with a pulse ox of 99%. Slight tachycardic with a heart rate of 105. The patient has a normal coagulation profile. Creatinine is at 1.8 with a BUN of 15. Electrolytes are all within normal limits. Hemoglobin is at 12.5 with a white cell count of 7.2. No previous history of DVT or pulmonary embolism. No personal or family hist ory. 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 Denies smoking. Denies substance abuse. Denies recent surgeries. Denies malignancies. The patient had a recent hospitalization at [facility] for altered mentation and the patient was found to be in renal failure. Details are not available and the patient is a poor historian and is not aware of the details of his previous hospitalization. During the last hospitalization, the patient was treated with dialysis and the patient was ultimately given a permacath upon discharge. However, he has not been undergoing any dialysis and the patient has not received any further medical treatment. The exact nature of his kidney failure is not known. Does not take any medications for now. He is known to have hypertension. No history of trauma. The troponin was negative. proBNP level is pending. Echocardiogram ordered. On 10/18/2024, the patient is being seen for a follow-up. He continues to have pain and spasm in the right lower extremity along with some swelling. The patient continues to have pleuritic right-sided chest pain which has improved. His pain is around 8 out of 10 in severity and the patient is receiving Dilaudid. Repeat chest x-ray was done and shows a patchy infiltration of the right middle lobe area anteriorly. Findings are essentially unchanged. Echocardiogram was also done and the patient does not have any significant pulm hypertension. LV function is preserved with an ejection fraction of 60 to 65% which is essentially within normal limits. No significant tricuspid regurgitation. No significant shortness of breath. Oxygenation remained stable and the patient remains on room air oxygen with a pulse ox of 98%. Objective - Vital Signs Vital signs: Vital Signs Temp 98.4 F 10/18/24 08:02 Pulse 81 10/18/24 08:02 Resp 18 10/18/24 08:02 BP 142/87 10/18/24 08:02 Pulse Ox 98 10/18/24 08:02 FiO2 Intake & Output 10/17/24 10/18/24 10/18/24 18:59 06:59 18:59 Intake Total 540 1437.965 20 Output Total 1000 Balance 540 437.965 20 Weight 83.9 kg Intake: IV 40 20 Invasive Line 1 20 10 Invasive Line 3 20 10 Intake, IV Titration 217.965 Amount Heparin Sod,Pork in 0.45% 217.965 NaCl 25,000 unit In 0.45 % NaCl 1 250ml.bag @ 18 UNITS/KG/HR 13.88 mls/hr IV .[id number] [facility] Rx#: [id number] Oral 540 1180 0 Output: Urine 1000 Other: Voiding Method Urinal Urinal Urinal - Exam The patient appeared well nourished and normally developed. Vital signs as documented. BMI is currently at 23.7 and the patient is currently on 2 L of oxygen by nasal cannula. The patient has poor dentition. Head exam is unremarkable. No scleral icterus or corneal arcus noted. Neck is without jugular venous distension, thyromegaly, or carotid bruits. Carotid upstrokes are brisk bilaterally. Permacath in his right IJ. Lungs are clear to auscultation and percussion. Diminished air entry bilaterally as the patient is having pleuritic chest pain unable to take a deep breath. Cardiac exam reveals the PMI to be normally sized and situated. Rhythm is regular. First and second heart sounds normal. No murmurs, rubs or gallops. Abdominal exam reveals normal bowel sounds, no masses, no organomegaly and no aortic enlargement. Extremities are nonedematous and both femoral and pedal pulses are normal. Right lower extremity slightly swollen compared to the left and tender to touch. Adequate pulses. Examination of the skin revealed no evidence of significant rashes, suspicious appearing nevi or other concerning lesions. Neurologically, the patient is awake and alert and the patient does not have any focal neurological deficit. Cranial nerves are essentially intact. - Labs CBC & Chem 7: 10/18/24 04:19 10/18/24 10:06 Labs: Abnormal Lab Results - Last 24 Hours (Table) 10/16/24 10/17/24 10/17/24 Range/Units 12:47 14:28 14:28 RBC 4.34 L (4.40-5.60) 10*6/uL Hgb 12.5 L (13.0-17.0) g/dL Hct 38.9 L (39.6-50.0) % RDW 18.0 H (11.5-14.5) % APTT (22.0-30.0) sec Lupus Anticoag aPTT 59 H (<43) Sec(s) Lupus Anticoag PTT Mix 50 H (<43) Sec(s) Lupus Hexagonal Phase Positive A (Negative) Sodium 131 L (137-145) mmol/L Carbon Dioxide 21 L (22-30) mmol/L Creatinine 1.81 H (0.66-1.25) mg/dL 10/17/24 10/18/24 10/18/24 Range/Units 21:19 04:19 04:19 RBC 3.85 L (4.40-5.60) 10*6/uL Hgb 11.2 L (13.0-17.0) g/dL Hct 34.2 L (39.6-50.0) % RDW (11.5-14.5) % APTT 34.8 H 37.3 H (22.0-30.0) sec Lupus Anticoag aPTT (<43) Sec(s) Lupus Anticoag PTT Mix (<43) Sec(s) Lupus Hexagonal Phase (Negative) Sodium (137-145) mmol/L Carbon Dioxide (22-30) mmol/L Creatinine (0.66-1.25) mg/dL Assessment and Plan Plan: Acute pulmonary embolism with severe pleuritic chest pain. The patient was confirmed with to have a right lower extremity popliteal peroneal and PTV thrombosis. VQ scan was abnormal with a large ventilation/perfusion defect. CT scan of the chest done without contrast and it shows some limited infiltration of the right middle lobe anteriorly, subpleural location with possible development of a pulmonary infarct. Troponins are negative. Echocardiogram is showing a preserved LV function without any significant pulm hypertension Acute hypoxic respiratory failure currently on room air oxygen Sinus tachycardia Acute pleuritic chest wall pain secondary to above, rule out development of a pulmonary infarct. Chest x-ray remains essentially stable and unchanged. Right lower extremity pain secondary to above Recent hospitalization for an acute kidney injury requiring dialysis. The patient continues to have a permacath in his right IJ. No recent dialysis been provided and the patient's creatinine is currently at 1.78, stable. Possibly component of chronic kidney disease. Hypertension Plan Titrate oxygen flow to maintain saturation above 90%, currently on room air oxygen Do not commit to Eliquis yet. Keep the patient on IV heparin for now. Echocardiogram was noted and there is no significant pulm hypertension Chest x-ray findings are stable Dilaudid for pain control 1 mg every 3 hours Provide incentive spirometer Continue telemetry monitoring Monitor renal function and obtain an ultrasound of the kidneys Obtain records from [facility] regarding details of his previous hospitalization Oncology evaluation for any potential hypercoagulability.
--- NOTE | 2024-10-18 12:47 | XR ---
EXAMINATION TYPE: XR chest 1V DATE OF EXAM: 10/18/2024 COMPARISON: 10/17/2024 CLINICAL INDICATION: Male, 49 years old with history of PE; shortness of breath TECHNIQUE: Single frontal view of the chest is obtained. FINDINGS: Heart borderline enlarged. Mild interstitial prominence is unchanged. Focal opacity redemonstrated at the right base. Removal of the right-sided double-lumen hemodialysis catheter. IMPRESSION: 1. Removal of the right-sided double-lumen hemodialysis catheter. Possible background mild pulmonary vascular congestion. 2. Ongoing focal right basilar opacity [facility] Leanna Nogueira, Workstation: [facility], 10/18/2024 12:45 PM
--- NOTE | 2024-10-18 16:11 | CDI ---
Documentation Clarification Form Date: 10/18/2024 03:47:37 PM From: Mary Bustos RN, CCDS Email: [email or web address] Admit Date: 10/15/2024 10:56:00 PM Patient Name: Ike Mendoza Visit Number: [id number] Discharge Date: ATTENTION: The Clinical Documentation Specialists (CDI) and [facility] Coding Staff appreciate your assistance in clarifying documentation. Please respond to the clarification below the line at the bottom and electronically sign. The CDI & [facility] Coding staff will review the response and follow-up if needed. Please note: Queries are made part of the Legal Health Record. If you have any questions, please contact the author of this message via ITS. Doctor Nate Kohler Conflicting documentation has been found in the medical record. As attending physician, please provide clarification. 10/17 IM Attending: "Positive for pneumonia right middle lobe, but negative for pulmonary embolism." 10/17 Pulmonary: "Acute pulmonary embolism with severe pleuritic chest pain." History/Risk Factors: HTN, CKD. Presents with RLE pain and swelling. Admitted with DVT. Clinical Indicators: 10/16 Pulmonary perfusion scan: Significantly abnormal exam with entire lung matched ventilation and perfusion defect on the right. While this may point towards other causes for the abnormality such as an obstructing hilar mass or venous stenosis/occlusion, there is a small chance for a very large unilateral PE. Correlate with clinical suspicion for PE. 10/[address]: Mild airspace consolidation in the right middle lobe, concerning for mild pneumonia. 10/17 IM: "The patient was admitted with severe DVT in his right leg. Positive for pneumonia right middle lobe, but negative for pulmonary embolism. He is on antibiotics." 10/18 Pulmonary: "Acute pulmonary embolism with severe pleuritic chest pain. The patient was confirmed to have a right lower extremity popliteal peroneal and PTV thrombosis. VQ scan was abnormal with a large ventilation/perfusion defect." Treatment: supplemental O2 as needed; IV Heparin titrated 10/17-current; IS; IV Dilaudid for pain control 1mg IVP Q3H prn Please clarify which diagnosis is most appropriate: [ ] Acute Pulmonary embolism ruled in [ ] Acute Pulmonary embolism ruled out [ ] Other (please specify) [ ] Unable to determine MTDD
[2024-10-18] MEDS: SODIUM CHLORIDE 0.9% 1,000 ML IV SCH (18:20)
[2024-10-18] MEDS: IPRATROPIUM-ALBUTEROL 3 ML NEB INHALATION SCH (20:10)
--- NOTE | 2024-10-19 08:26 | XR ---
EXAMINATION TYPE: XR chest 1V DATE OF EXAM: 10/19/2024 COMPARISON: 10/18/2024 CLINICAL INDICATION: Male, 49 years old with history of PE; TECHNIQUE: Single frontal view of the chest is obtained. FINDINGS: Heart upper limits of normal in size. Focal right lower lung opacity persists. Mild interstitial dens ity persists. No appreciable pneumothorax. IMPRESSION: Mild interstitial prominence and focal right basilar opacity both persist. [facility], Workstation: [id number], 10/19/2024 8:24 AM
--- NOTE | 2024-10-19 13:37 | P.PN ---
Subjective Progress Note Date: 10/19/24 I was asked to evaluate this patient for ongoing chest pain. The patient was hospitalized on 10/15/2024. The patient was transferred to us from [facility]. The patient presented there with acute pain and swelling of the right lower extremity that been going on for the past 3 days. The patient subsequent developed an acute pleuritic right-sided chest pain radiating to his back. No hemoptysis. The pain was worse with breathing and the patient was unable to take any form of deep breath. Based on that, the patient got transferred to our hospital. Doppler of the lower extremity showed no abnormalities on the left, there was a positive right lower extremity DVT and this was involving the popliteal vein, peroneal vein and PTV. Patient underwent a noncontrast CAT scan of the chest. He declined contrast due to allergy and the patient also has a component of chronic kidney disease. The CAT scan showed some mild airspace disease in the anterior right middle lobe/right middle lobe without any other significant abnormalities. Furthermore, the patient was given a VQ scan that showed a large matched defect involving the right lung and there was a matched ventilation/perfusion defect. The patient is currently on 2 L of oxygen by nasal cannula with a pulse ox of 99%. Slight tachycardic with a heart rate of 105. The patient has a normal coagulation profile. Creatinine is at 1.8 with a BUN of 15. Electrolytes are all within normal limits. Hemoglobin is at 12.5 with a white cell count of 7.2. No previous history of DVT or pulmonary embolism. No personal or family hist ory. 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 Denies smoking. Denies substance abuse. Denies recent surgeries. Denies malignancies. The patient had a recent hospitalization at [facility] for altered mentation and the patient was found to be in renal failure. Details are not available and the patient is a poor historian and is not aware of the details of his previous hospitalization. During the last hospitalization, the patient was treated with dialysis and the patient was ultimately given a permacath upon discharge. However, he has not been undergoing any dialysis and the patient has not received any further medical treatment. The exact nature of his kidney failure is not known. Does not take any medications for now. He is known to have hypertension. No history of trauma. The troponin was negative. proBNP level is pending. Echocardiogram ordered. On 10/18/2024, the patient is being seen for a follow-up. He continues to have pain and spasm in the right lower extremity along with some swelling. The patient continues to have pleuritic right-sided chest pain which has improved. His pain is around 8 out of 10 in severity and the patient is receiving Dilaudid. Repeat chest x-ray was done and shows a patchy infiltration of the right middle lobe area anteriorly. Findings are essentially unchanged. Echocardiogram was also done and the patient does not have any significant pulm hypertension. LV function is preserved with an ejection fraction of 60 to 65% which is essentially within normal limits. No significant tricuspid regurgitation. No significant shortness of breath. Oxygenation remained stable and the patient remains on room air oxygen with a pulse ox of 98%. On today's evaluation of 10/19/2024, the pain in the right lower extremity is improved and the patient also reports improvement of pleuritic chest pain. Remains on IV heparin. No new complaints. Hemodynamically stable. No hypotension. No hemoptysis. The patient remains on room air oxygen. A follow- up chest x-ray from today shows mild interstitial prominence with some focal right basilar opacity that persists. This is probably an area of pulmonary infarct. Echocardiogram was also performed on 10/17/2024 and the patient has a preserved LV function without any significant valvular abnormalities. No significant pulmonary hypertension was noted. Labs were reviewed. Sodium level is 129, creatinine is 1.7, potassium is 4.1, bicarb less than 23. Objective - Vital Signs Vital signs: Vital Signs Temp 98.0 F 10/19/24 08:00 Pulse 78 10/19/24 08:00 Resp 18 10/19/24 08:00 BP 141/96 10/19/24 08:00 Pulse Ox 99 10/19/24 08:00 FiO2 Intake & Output 10/18/24 10/19/24 10/19/24 18:59 06:59 18:59 Intake Total 220 310 218.762 Output Total 675 Balance -455 310 218.762 Intake: IV 40 60 20 Invasive Line 1 20 20 Invasive Line 3 20 30 10 Invasive Line 4 10 10 Intake, IV Titration 250 198.762 Amount Heparin Sod,Pork in 0.45% 250 198.762 NaCl 25,000 unit In 0.45 % NaCl 1 250ml.bag @ 18 UNITS/KG/HR 13.88 mls/hr IV .Q18H1M [facility] Rx#: [id number] Oral 180 Output: Urine 675 Other: Voiding Method Urinal Urinal # Voids 1 3 - Exam The patient appeared well nourished and normally developed. Vital signs as documented. BMI is currently at 23.7 and the patient is currently on 2 L of oxygen by nasal cannula. The patient has poor dentition. Head exam is unremarkable. No scleral icterus or corneal arcus noted. Neck is without jugular venous distension, thyromegaly, or carotid bruits. Carotid upstrokes are brisk bilaterally. Permacath in his right IJ. Lungs are clear to auscultation and percussion. Diminished air entry bilaterally as the patient is having pleuritic chest pain unable to take a deep breath. Cardiac exam reveals the PMI to be normally sized and situated. Rhythm is regular. First and second heart sounds normal. No murmurs, rubs or gallops. Abdominal exam reveals normal bowel sounds, no masses, no organomegaly and no aortic enlargement. Extremities are nonedematous and both femoral and pedal pulses are normal. Right lower extremity slightly swollen compared to the left and tender to touch. Adequate pulses. Examination of the skin revealed no evidence of significant rashes, suspicious appearing nevi or other concerning lesions. Neurologically, the patient is awake and alert and the patient does not have any focal neurological deficit. Cranial nerves are essentially intact. - Labs CBC & Chem 7: 10/18/24 04:19 10/18/24 10:06 Labs: Abnormal Lab Results - Last 24 Hours (Table) 10/19/24 Range/Units 06:12 APTT 37.4 H (22.0-30.0) sec Assessment and Plan Plan: Acute pulmonary embolism with severe pleuritic chest pain. The patient was confirmed with to have a right lower extremity popliteal peroneal and PTV thrombosis. VQ scan was abnormal with a large ventilation/perfusion defect. CT scan of the chest done without contrast and it shows some limited infiltration o f the right middle lobe anteriorly, subpleural location with possible development of a pulmonary infarct. Troponins are negative. Echocardiogram is showing a preserved LV function without any significant pulm hypertension Acute hypoxic respiratory failure currently on room air oxygen Sinus tachycardia Acute pleuritic chest wall pain secondary to above, rule out development of a pulmonary infarct. Chest x-ray remains essentially stable and unchanged. Right lower extremity pain secondary to above Recent hospitalization for an acute kidney injury requiring dialysis. The patient continues to have a permacath in his right IJ. No recent dialysis been provided and the patient's creatinine is currently at 1.78, stable. Possibly component of chronic kidney disease. Hypertension Plan Titrate oxygen flow to maintain saturation above 90%, currently on room air oxygen Stopped IV heparin and start the patient anticoagulation with Eliquis 10 mg p.o. twice a day Chest x-ray findings are stable and consistent with pulmonary embolism and possible infarcts Pleuritic chest pain is subsided Echocardiogram was noted and there is no significant pulm hypertension Chest x-ray findings are stable Dilaudid for pain control 1 mg every 3 hours Provide incentive spirometer Continue telemetry monitoring Monitor renal function and obtain an ultrasound of the kidneys, creatinine stable, improved Will continue to follow
[2024-10-19] MEDS: Apixaban Initiation Dose--VTE 5 MG TAB PO SCH (13:41)
[2024-10-19] MEDS: LEVOFLOXACIN 500 MG TAB PO SCH (17:24)
--- NOTE | 2024-10-19 23:59 | PN ---
PROGRESS NOTE SUBJECTIVE: This is a 49-year-old white male with DVT, pulmonary infarction, chest pain. The patient's blood pressure is still elevated. Increase atenolol of 50 b.i.d. from 25 twice a day up to 50 b.i.d. OBJECTIVE: CARDIOVASCULAR: S1, S2. LUNGS: Clear. GI: Soft. HEMATOLOGY: Right leg is less swollen and tender than before. ASSESSMENT/PLAN: Deep vein thrombosis, extensive pneumonitis, atypical chest pain, possible pulmonary infarction, hypertension. Increased atenolol 50 b.i.d. Continue current treatment. Prognosis is guarded. Ambulate as tolerated. MMODL / IJN: [id number] /
--- NOTE | 2024-10-20 07:16 | XR ---
EXAMINATION TYPE: XR chest 1V DATE OF EXAM: 10/20/2024 5:31 AM COMPARISON: Chest radiographs from 10/19/2024 TECHNIQUE: XR chest 1V Portable AP radiograph of the chest. CLINICAL INDICATION:Male, 49 years old with history of PE; FINDINGS: Patient is rotated which limits evaluation. Lungs/Pleura: No pleural effusion or pneumothorax. Focal right lower lung opacity persists. Mild inte rstitial densities persist. Pulmonary vascularity: Unremarkable. Heart/mediastinum: Cardiomediastinal silhouette is unremarkable. Musculoskeletal: No acute osseous pathology. IMPRESSION: Similar interstitial prominence and focal right basilar patchy opacity. [facility], , 10/20/2024 7:14 AM
--- NOTE | 2024-10-20 11:17 | P.PN ---
Progress Note - Text 49-year-old gentleman came with right lower extremity pain discomfort. He had a venous ultrasound which showed extensive DVT of the right lower extremity patient was started on heparin there is a possibility of PE on examination his femoral pulses are present for 1+ patient is anticoagulation and REMI angel 1 pillow elevation when patient is discharged from the heart follow-up with me in the office as a follow-up DVT which will need to get ultrasound of the right lower extremity
[2024-10-20] MEDS: HYDROcodone/APAP 7.5-325MG 1 EACH TAB PO PRN (12:00)
--- NOTE | 2024-10-20 17:51 | P.PN ---
Subjective Progress Note Date: 10/20/24 I was asked to evaluate this patient for ongoing chest pain. The patient was hospitalized on 10/15/2024. The patient was transferred to us from [facility]. The patient presented there with acute pain and swelling of the right lower extremity that been going on for the past 3 days. The patient subsequent developed an acute pleuritic right-sided chest pain radiating to his back. No hemoptysis. The pain was worse with breathing and the patient was unable to take any form of deep breath. Based on that, the patient got transferred to our hospital. Doppler of the lower extremity showed no abnormalities on the left, there was a positive right lower extremity DVT and this was involving the popliteal vein, peroneal vein and PTV. Patient underwent a noncontrast CAT scan of the chest. He declined contrast due to allergy and the patient also has a component of chronic kidney disease. The CAT scan showed some mild airspace disease in the anterior right middle lobe/right middle lobe without any other significant abnormalities. Furthermore, the patient was given a VQ scan that showed a large matched defect involving the right lung and there was a matched ventilation/perfusion defect. The patient is currently on 2 L of oxygen by nasal cannula with a pulse ox of 99%. Slight tachycardic with a heart rate of 105. The patient has a normal coagulation profile. Creatinine is at 1.8 with a BUN of 15. Electrolytes are all within normal limits. Hemoglobin is at 12.5 with a white cell count of 7.2. No previous history of DVT or pulmonary embolism. No personal or family hist ory. 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 Denies smoking. Denies substance abuse. Denies recent surgeries. Denies malignancies. The patient had a recent hospitalization at [facility] for altered mentation and the patient was found to be in renal failure. Details are not available and the patient is a poor historian and is not aware of the details of his previous hospitalization. During the last hospitalization, the patient was treated with dialysis and the patient was ultimately given a permacath upon discharge. However, he has not been undergoing any dialysis and the patient has not received any further medical treatment. The exact nature of his kidney failure is not known. Does not take any medications for now. He is known to have hypertension. No history of trauma. The troponin was negative. proBNP level is pending. Echocardiogram ordered. On 10/18/2024, the patient is being seen for a follow-up. He continues to have pain and spasm in the right lower extremity along with some swelling. The patient continues to have pleuritic right-sided chest pain which has improved. His pain is around 8 out of 10 in severity and the patient is receiving Dilaudid. Repeat chest x-ray was done and shows a patchy infiltration of the right middle lobe area anteriorly. Findings are essentially unchanged. Echocardiogram was also done and the patient does not have any significant pulm hypertension. LV function is preserved with an ejection fraction of 60 to 65% which is essentially within normal limits. No significant tricuspid regurgitation. No significant shortness of breath. Oxygenation remained stable and the patient remains on room air oxygen with a pulse ox of 98%. On today's evaluation of 10/19/2024, the pain in the right lower extremity is improved and the patient also reports improvement of pleuritic chest pain. Remains on IV heparin. No new complaints. Hemodynamically stable. No hypotension. No hemoptysis. The patient remains on room air oxygen. A follow- up chest x-ray from today shows mild interstitial prominence with some focal right basilar opacity that persists. This is probably an area of pulmonary infarct. Echocardiogram was also performed on 10/17/2024 and the patient has a preserved LV function without any significant valvular abnormalities. No significant pulmonary hypertension was noted. Labs were reviewed. Sodium level is 129, creatinine is 1.7, potassium is 4.1, bicarb less than 23. On today's evaluation of 10/20/2024, the patient is reporting improvement in the pain in his chest. He continues to have some discomfort in his right lower extremity. The patient is currently on anticoagulation with Eliquis 10 mg p.o. twice a day. Tolerating treatment well. No specific complaints. Hemodynamically stable. Remains on room air oxygen. No hemoptysis. No pleurisy. No new labs are available from today. Increasing level of activity status tolerated and the patient is currently on Dilaudid for pain control. Objective - Vital Signs Vital signs: Vital Signs Temp 98.2 F 10/20/24 08:00 Pulse 77 10/20/24 08:00 Resp 20 10/20/24 08:00 BP 144/92 10/20/24 08:00 Pulse Ox 98 10/20/24 08:00 FiO2 Intake & Output 10/19/24 10/20/24 10/20/24 18:59 06:59 18:59 Intake Total 238.762 40 480 Balance 238.762 40 480 Weight 85 kg Intake: IV 40 40 Invasive Line 3 20 20 Invasive Line 4 20 20 Intake, IV Titration 198.762 Amount Heparin Sod,Pork in 0.45% 198.762 NaCl 25,000 unit In 0.45 % NaCl 1 250ml.bag @ 18 UNITS/KG/HR 13.88 mls/hr IV .Q18H1M [facility] Rx#: [id number] Oral 480 Other: Voiding Method Urinal Toilet Urinal # Voids 2 - Exam The patient appeared well nourished and normally developed. Vital signs as documented. BMI is currently at 23.7 and the patient is currently on 2 L of oxygen by nasal cannula. The patient has poor dentition. Head exam is unremarkable. No scleral icterus or corneal arcus noted. Neck is without jugular venous distension, thyromegaly, or carotid bruits. Carotid upstrokes are brisk bilaterally. Permacath in his right IJ. Lungs are clear to auscultation and percussion. Diminished air entry bilaterally as the patient is having pleuritic chest pain unable to take a deep breath. Cardiac exam reveals the PMI to be normally sized and situated. Rhythm is regular. First and second heart sounds normal. No murmurs, rubs or gallops. Abdominal exam reveals normal bowel sounds, no masses, no organomegaly and no aortic enlargement. Extremities are nonedematous and both femoral and pedal pulses are normal. Right lower extremity slightly swollen compared to the left and tender to touch. Adequate pulses. Examination of the skin revealed no evidence of significant rashes, suspicious appearing nevi or other concerning lesions. Neurologically, the patient is awake and alert and the patient does not have any focal neurological deficit. Cranial nerves are essentially intact. - Labs CBC & Chem 7: 10/18/24 04:19 10/18/24 10:06 Assessment and Plan Plan: Acute pulmonary embolism with severe pleuritic chest pain. The patient was confirmed with to have a right lower extremity popliteal peroneal and PTV thrombosis. VQ scan was abnormal with a large ventilation/perfusion defect. CT scan of the chest done without contrast and it shows some limited infiltration of the right middle lobe anteriorly, subpleural location with possible development of a pulmonary infarct. Troponins are negative. Echocardiogram is showing a preserved LV function without any significant pulm hypertension Acute hypoxic respiratory failure currently on room air oxygen Sinus tachycardia, improved Acute pleuritic chest wall pain secondary to above, rule out development of a pulmonary infarct. Chest x-ray remains essentially stable and unchanged. Clinically improving and the pain is subsiding Right lower extremity pain secondary to above Recent hospitalization for an acute kidney injury requiring dialysis. The patient continues to have a permacath in his right IJ. No recent dialysis been provided and the patient's creatinine is currently at 1.78, stable. Possibly component of chronic kidney disease. Hypertension Plan Titrate oxygen flow to maintain saturation above 90%, currently on room air oxygen Continue Eliquis 10 mg p.o. twice a day Chest x-ray findings are stable and consistent with pulmonary embolism and possible infarcts, chest x-ray was done on 10/20/2024 Pleuritic chest pain is subsided Echocardiogram was noted and there is no significant pulm hypertension Chest x-ray findings are stable Dilaudid for pain control 1 mg every 3 hours, as needed. Meanwhile, we will start the patient on [place] 7.5 mg to be taken every 6 hours on a as needed basis and use Dilaudid only as needed. Provide incentive spirometer Continue telemetry monitoring Monitor renal function and obtain an ultrasound of the kidneys, creatinine stable, improved Obtain labs in a.m. Will continue to follow
[2024-10-21 06:56] LABS: HCT 35.7 % (39.6-50.0); HGB 11.6 g/dL (13.0-17.0); MCH 28.0 pg (27.0-32.0); MCHC 32.5 g/dL (32.0-37.0); MCV 86.2 fL (80.0-97.0); Platelet Count 358 10*3/uL (140-440); RBC 4.14 10*6/uL (4.40-5.60); RDW 17.2 % (11.5-14.5); WBC 4.60 10*3/uL (4.50-10.00)
[2024-10-21 07:10] LABS: African American GFR (CKD) 54 (>60 ml/min/1.73 sqM); Anion Gap 9 mmol/L; Blood Urea Nitrogen 15 mg/dL (9-20); Calcium 9.5 mg/dL (8.4-10.2); Carbon Dioxide 26 mmol/L (22-30); Chloride 94 mmol/L (98-107); Glucose 101 mg/dL (74-99); Non-African American GFR(CKD) 46 (>60 ml/min/1.73 sqM); Potassium 4.2 mmol/L (3.5-5.1); Sodium 129 mmol/L (137-145)
--- NOTE | 2024-10-21 11:55 | P.PN ---
Subjective Progress Note Date: 10/21/24 I was asked to evaluate this patient for ongoing chest pain. The patient was hospitalized on 10/15/2024. The patient was transferred to us from [facility]. The patient presented there with acute pain and swelling of the right lower extremity that been going on for the past 3 days. The patient subsequent developed an acute pleuritic right-sided chest pain radiating to his back. No hemoptysis. The pain was worse with breathing and the patient was unable to take any form of deep breath. Based on that, the patient got transferred to our hospital. Doppler of the lower extremity showed no abnormalities on the left, there was a positive right lower extremity DVT and this was involving the popliteal vein, peroneal vein and PTV. Patient underwent a noncontrast CAT scan of the chest. He declined contrast due to allergy and the patient also has a component of chronic kidney disease. The CAT scan showed some mild airspace disease in the anterior right middle lobe/right middle lobe without any other significant abnormalities. Furthermore, the patient was given a VQ scan that showed a large matched defect involving the right lung and there was a matched ventilation/perfusion defect. The patient is currently on 2 L of oxygen by nasal cannula with a pulse ox of 99%. Slight tachycardic with a heart rate of 105. The patient has a normal coagulation profile. Creatinine is at 1.8 with a BUN of 15. Electrolytes are all within normal limits. Hemoglobin is at 12.5 with a white cell count of 7.2. No previous history of DVT or pulmonary embolism. No personal or family hist ory. 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 Denies smoking. Denies substance abuse. Denies recent surgeries. Denies malignancies. The patient had a recent hospitalization at [facility] for altered mentation and the patient was found to be in renal failure. Details are not available and the patient is a poor historian and is not aware of the details of his previous hospitalization. During the last hospitalization, the patient was treated with dialysis and the patient was ultimately given a permacath upon discharge. However, he has not been undergoing any dialysis and the patient has not received any further medical treatment. The exact nature of his kidney failure is not known. Does not take any medications for now. He is known to have hypertension. No history of trauma. The troponin was negative. proBNP level is pending. Echocardiogram ordered. On 10/18/2024, the patient is being seen for a follow-up. He continues to have pain and spasm in the right lower extremity along with some swelling. The patient continues to have pleuritic right-sided chest pain which has improved. His pain is around 8 out of 10 in severity and the patient is receiving Dilaudid. Repeat chest x-ray was done and shows a patchy infiltration of the right middle lobe area anteriorly. Findings are essentially unchanged. Echocardiogram was also done and the patient does not have any significant pulm hypertension. LV function is preserved with an ejection fraction of 60 to 65% which is essentially within normal limits. No significant tricuspid regurgitation. No significant shortness of breath. Oxygenation remained stable and the patient remains on room air oxygen with a pulse ox of 98%. On today's evaluation of 10/19/2024, the pain in the right lower extremity is improved and the patient also reports improvement of pleuritic chest pain. Remains on IV heparin. No new complaints. Hemodynamically stable. No hypotension. No hemoptysis. The patient remains on room air oxygen. A follow- up chest x-ray from today shows mild interstitial prominence with some focal right basilar opacity that persists. This is probably an area of pulmonary infarct. Echocardiogram was also performed on 10/17/2024 and the patient has a preserved LV function without any significant valvular abnormalities. No significant pulmonary hypertension was noted. Labs were reviewed. Sodium level is 129, creatinine is 1.7, potassium is 4.1, bicarb less than 23. On today's evaluation of 10/20/2024, the patient is reporting improvement in the pain in his chest. He continues to have some discomfort in his right lower extremity. The patient is currently on anticoagulation with Eliquis 10 mg p.o. twice a day. Tolerating treatment well. No specific complaints. Hemodynamically stable. Remains on room air oxygen. No hemoptysis. No pleurisy. No new labs are available from today. Increasing level of activity status tolerated and the patient is currently on Dilaudid for pain control. On 10/21/2024, the patient stable anticoagulation with Eliquis. No chest pain. No significant shortness of breath. Resting comfortably in bed. Hemoglobin stable 11.6, creatinine stable at 1.7, sodium levels at 129. No other significant events overnight. Hemodynamically stable. Room air pulse ox is 99% . Objective - Vital Signs Vital signs: Vital Signs Temp 97.9 F 10/21/24 04:00 Pulse 74 10/21/24 04:00 Resp 18 10/21/24 04:00 BP 144/95 10/21/24 04:00 Pulse Ox 100 10/21/24 04:00 FiO2 Intake & Output 10/20/24 10/21/24 10/21/24 18:59 06:59 18:59 Intake Total 1130 Balance 1130 Weight 85.1 kg Intake: Oral 1130 Other: Voiding Method Toilet Toilet Urinal Urinal # Voids 2 2 - Exam The patient appeared well nourished and normally developed. Vital signs as documented. BMI is currently at 23.7 and the patient is currently on 2 L of oxygen by nasal cannula. The patient has poor dentition. Head exam is unremarkable. No scleral icterus or corneal arcus noted. Neck is without jugular venous distension, thyromegaly, or carotid bruits. Carotid upstrokes are brisk bilaterally. Permacath in his right IJ. Lungs are clear to auscultation and percussion. Diminished air entry bilaterally as the patient is having pleuritic chest pain unable to take a deep breath. Cardiac exam reveals the PMI to be normally sized and situated. Rhythm is regular. First and second heart sounds normal. No murmurs, rubs or gallops. Abdominal exam reveals normal bowel sounds, no masses, no organomegaly and no aortic enlargement. Extremities are nonedematous and both femoral and pedal pulses are normal. Right lower extremity slightly swollen compared to the left and tender to touch. Adequate pulses. Examination of the skin revealed no evidence of significant rashes, suspicious appearing nevi or other concerning lesions. Neurologically, the patient is awake and alert and the patient does not have any focal neurological deficit. Cranial nerves are essentially intact. - Labs CBC & Chem 7: 10/21/24 06:20 10/21/24 06:20 Labs: Abnormal Lab Results - Last 24 Hours (Table) 10/21/24 10/21/24 Range/Units 06:20 06:20 RBC 4.14 L (4.40-5.60) 10*6/uL Hgb 11.6 L (13.0-17.0) g/dL Hct 35.7 L (39.6-50.0) % Sodium 129 L (137-145) mmol/L Chloride 94 L (98-107) mmol/L Creatinine 1.72 H (0.66-1.25) mg/dL Glucose 101 H (74-99) mg/dL Assessment and Plan Plan: Acute pulmonary embolism with severe pleuritic chest pain. The patient was confirmed with to have a right lower extremity popliteal peroneal and PTV thrombosis. VQ scan was abnormal with a large ventilation/perfusion defect. CT scan of the chest done without contrast and it shows some limited infiltration of the right middle lobe anteriorly, subpleural location with possible development of a pulmonary infarct. Troponins are negative. Echocardiogram is showing a preserved LV function without any significant pulm hypertension Acute hypoxic respiratory failure currently on room air oxygen Sinus tachycardia, improved Acute pleuritic chest wall pain secondary to above, rule out development of a pulmonary infarct. Chest x-ray remains essentially stable and unchanged. Clinically improving and the pain is subsiding Right lower extremity pain secondary to above Recent hospitalization for an acute kidney injury requiring dialysis. The patient continues to have a permacath in his right IJ. No recent dialysis been provided and the patient's creatinine is currently at 1.78, stable. Possibly co mponent of chronic kidney disease. The creatinine remains stable. Hypertension Plan Clinically stable Titrate oxygen flow to maintain saturation above 90%, currently on room air oxygen Continue Eliquis 10 mg p.o. twice a day, no issues with anticoagulation Chest x-ray findings are stable and consistent with pulmonary embolism and possible infarcts, chest x-ray was done on 10/20/2024 Pleuritic chest pain is subsided and the patient denies having any significant shortness of breath Echocardiogram was noted and there is no significant pulm hypertension Chest x-ray findings are stable Dilaudid for pain control 1 mg every 3 hours, as needed. Meanwhile, we will start the patient on [place] 7.5 mg to be taken every 6 hours on a as needed basis and use Dilaudid only as needed. Provide incentive spirometer Renal function remained stable The patient can be discharged home to be followed up on outpatient basis.
[2024-10-21] MEDS: ACETAMINOPHEN TAB 325 MG TAB PO PRN (15:56)
[2024-10-22 04:14] VITALS: TEMP 98
[2024-10-22 08:52] VITALS: BP 131/84; PULSE 63; RESP 16
--- NOTE | 2024-10-24 22:58 | PN ---
PROGRESS NOTE Severe DVT in the right leg. Acute pulmonary embolism is ruled out. MMODL / IJN: [id number] /
== END 2024-10-22 11:45 | disposition home or self-care (01) | DRG 182 ==
LOC: EC 18:44 → OBSVTOIN 22:56 → 4SSUR 22:56 → 3SCARD 10-17 16:58
PROVIDERS: ADMIT Family Medicine; ATTEND Family Medicine
PROC: 05PY03Z Removal of Infusion Device from Upper Vein, Open Approach (ICD-10-PCS; principal; 2024-10-17)
DX: I82.401 Acute embolism and thrombosis of unspecified deep veins of right lower extremity (principal); J18.9 Pneumonia, unspecified organism; J44.0 Chronic obstructive pulmonary disease with (acute) lower respiratory infection; I12.9 Hypertensive chronic kidney disease with stage 1 through stage 4 chronic kidney disease, or unspecified chronic kidney disease; N18.9 Chronic kidney disease, unspecified; Z88.0 Allergy status to penicillin; Z91.041 Radiographic dye allergy status; Z28.310 Unvaccinated for COVID-19; Z53.29 Procedure and treatment not carried out because of patient's decision for other reasons; Z28.21 Immunization not carried out because of patient refusal
CPT/HCPCS: 36415; 71045; 71250; 78582; 80048; 80053; 83735; 84484; 85025; 85027; 85610; 85613; 85730; 86147; 93306; 96365; 96366; 96375; 99291